=== PATIENT | female | born 1995 | race Caucasian/White ===

== ENCOUNTER 2018-05-06 13:21 | Emergency (ER) | payer OTHER ==
[~2018-05-06] VITALS: Ht 175.3 cm; Wt 100.7 kg
[~2018-05-06 13:21] MED LIST: ALLEGRA-D1 TAB.SR1 PO; ANAPROX275 MG PO; AZITHROMYCIN; ORPH100T PO; PEPCID40 MG PO; PIROXICAM20 MG PO; ZOFRAN4 MG PO; [UNRECOGNIZED DRUG - OTHER]; [UNRECOGNIZED DRUG - OTHER] PO
== END 2018-05-06 18:10 | disposition home or self-care (01) ==
LOC: ER 13:21
DX: N93.8 Other specified abnormal uterine and vaginal bleeding (principal); N88.8 Other specified noninflammatory disorders of cervix uteri

== ENCOUNTER 2018-09-27 09:14 | Emergency (ER) | payer OTHER ==
[~2018-09-27] VITALS: Ht 172.7 cm; Wt 90.3 kg
== END 2018-09-27 16:00 | disposition home or self-care (01) ==
LOC: ER 09:14
DX: N83.291 Other ovarian cyst, right side (principal)

== ENCOUNTER 2019-01-11 13:58 | Emergency (ER) | payer OTHER ==
[~2019-01-11] VITALS: Ht 175.3 cm; Wt 78.0 kg
== END 2019-01-11 19:00 | disposition home or self-care (01) ==
LOC: ER 13:58
DX: K80.20 Calculus of gallbladder without cholecystitis without obstruction (principal)

== ENCOUNTER 2019-01-13 08:10 | Emergency (ER) | payer OTHER ==
[~2019-01-13] VITALS: Ht 175.3 cm; Wt 78.0 kg
[2019-01-13] MEDS ORDERED: PEPCID20 MG (08:31)
[2019-01-13] MEDS ORDERED: PRILOSEC10 MG (08:31)
[2019-01-18] MEDS ORDERED: DICY20TA PO (14:06)
== END 2019-01-13 10:10 | disposition home or self-care (01) ==
LOC: ER 08:10
DX: N94.6 Dysmenorrhea, unspecified (principal)

== ENCOUNTER → 2019-01-18 | Emergency (ER) | payer OTHER ==
[~2019-01-18] VITALS: Ht 175.3 cm; Wt 76.2 kg
[~2019-01-18] MED LIST changes: +DICY20TA PO; +PEPCID20 MG; +PRILOSEC10 MG
== END | disposition home or self-care (01) ==
LOC: ER 09:57
DX: R10.2 Pelvic and perineal pain (principal)

== ENCOUNTER → 2020-04-13 | Emergency (ER) | payer OTHER ==
[~2020-04-13] VITALS: Ht 175.3 cm; Wt 104.3 kg
== END | disposition left against medical advice (07) ==
LOC: ER 08:09
DX: R10.11 Right upper quadrant pain (principal); R10.31 Right lower quadrant pain

== ENCOUNTER 2020-04-14 12:49 | Inpatient (IN) | payer OTHER ==
[~2020-04-14] VITALS: Ht 175.3 cm; Wt 230.0 kg
== END 2020-04-17 20:30 | disposition left against medical advice (07) | DRG 446 ==
LOC: ER 12:49 → SEC-K 22:20 → SURG 22:20 → MEDI 04-15 02:02 → MEDJ 04-15 02:28 → SURG 04-15 02:31
PROVIDERS: ADMIT Internal Medicine; ATTEND Internal Medicine
DX: K80.50 Calculus of bile duct without cholangitis or cholecystitis without obstruction (principal)

== ENCOUNTER 2020-05-01 08:06 | Outpatient (CLI) | payer OTHER | END 2020-05-01 08:15 | disposition home or self-care (01) | LOC: MRI 08:06 | PROVIDERS: ATTEND Internal Medicine Gastroenterology | DX: K80.51 Calculus of bile duct without cholangitis or cholecystitis with obstruction (principal) | CPT/HCPCS: 74181 ==

== ENCOUNTER 2020-08-31 05:45 | Day surgery (SDC) | payer OTHER ==
[2020-08-31] MEDS ORDERED: ULTRACET PO (10:58)
[2020-08-31] MEDS ORDERED: PROTONIX40 MG PO (11:00)
== END 2020-08-31 13:40 | disposition home or self-care (01) ==
LOC: CIR.AMB 05:45
PROVIDERS: ATTEND Surgery
DX: K80.10 Calculus of gallbladder with chronic cholecystitis without obstruction (principal); Z20.828 Contact with and (suspected) exposure to other viral communicable diseases

== ENCOUNTER 2020-09-24 08:58 | Emergency (ER) | payer OTHER ==
[~2020-09-24] VITALS: Ht 175.3 cm; Wt 117.9 kg
[~2020-09-24 08:58] MED LIST changes: +PROTONIX40 MG PO; +ULTRACET PO
== END 2020-09-24 12:14 | disposition home or self-care (01) ==
LOC: ER 08:58
DX: N39.0 Urinary tract infection, site not specified (principal); M54.5 Low back pain

== ENCOUNTER 2021-12-01 09:43 | Outpatient (CLI) | payer OTHER | END 2021-12-01 09:48 | disposition home or self-care (01) | LOC: SONOGRAMA 09:43 | DX: R10.11 Right upper quadrant pain (principal) ==